=== PATIENT | male | born 1980 | race Caucasian/White ===

== ENCOUNTER 2024-03-12 09:21 | Outpatient (REF) | payer MEDICAID, SELFPAY ==
[2024-03-12 14:11] LABS: MANUAL DIFF FLAG NO
[2024-03-12 14:14] LABS: Basophils Absolute Auto 0.1 X10*3/uL (0.0-0.2); Basophils Percent Auto 0.9 % (0-2); Eosinophils Absolute Auto 0.2 X10*3/uL (0.0-0.4); Eosinophils Percent Auto 2.4 % (0-4); Hematocrit 46.1 % (42.0-52.0); Hemoglobin 14.9 g/dl (14.0-18.0); Imm Gran Abs Auto 0.03 X10*3/uL (0.00-0.03); Imm Gran Pct Auto 0.4 % (0.0-0.4); Lymphocytes Absolute Auto 2.8 X10*3/uL (1.2-4.9); Lymphocytes Percent Auto 33.9 % (20-40); Mean Corpuscular HGB Conc 32.3 g/dl (31.0-36.0); Mean Corpuscular Volume 86.5 fL (80.0-98.0); Mean Platelet Volume 11.2 fL (9.4-12.4); Monocytes Absolute Auto 0.5 X10*3/uL (0.1-1.2); Monocytes Percent Auto 6.6 % (2-11); Neutrophils Absolute Auto 4.6 x10*3/uL (2.0-8.3); Neutrophils Percent Auto 55.8 % (45-73); Platelet Count 258 X10*3/uL (160-400); Red Blood Count 5.33 X10*6/uL (4.60-5.80); Red Cell Distribution Width 12.8 % (11.0-16.0); White Blood Count 8.2 X10*3/uL (4.8-10.8)
[2024-03-12 14:33] LABS: Estimated Average Glucose 232 mg/dL; Hemoglobin A1c % 9.7 % (<6.0); Total Hemoglobin (HGBA1C) 3817.1857 umol/L
[2024-03-12 14:35] LABS: Alanine Aminotransferase 52 U/L (0-40); Albumin Level 4.3 g/dL (3.5-5.0); Alkaline Phosphatase 55 U/L (39-117); Anion Gap 14 (12-20); Aspartate Amino Transferase 38 U/L (5-37); Bilirubin Total 0.5 mg/dL (0.0-1.0); Blood Urea Nitrogen 16 mg/dL (9-16); Calcium 9.9 mg/dL (8.4-10.2); Carbon Dioxide 29 mmol/L (22-29); Chloride 101 mmol/L (96-108); Cholesterol 254 mg/dL (<200); Estimated Glomerular Filt Rate > 60; Glucose Random 229 mg/dL (60-115); HDL Cholesterol 37 mg/dL (>40); LDL Cholesterol Calculated 161 mg/dL (<100); Potassium 4.6 mmol/L (3.3-5.1); Sodium 139 mmol/L (135-145); Total Protein 7.7 g/dL (6.5-8.0); Triglycerides 282 mg/dL (<150)
[2024-03-12 14:53] LABS: TSH reflex Free T4 2.64 uIU/mL (0.32-4.0)
[2024-03-13 08:26] LABS: HIV AB/AG Nonreactive (Nonreactive); HIV Num 1 0.05 S/CO (0.00-0.99); ~HepC Num1 0.08 S/CO (0.00-0.79); ~Hepatitis C Antibody Nonreactive (Nonreactive)
== END 2024-03-12 09:22 | disposition home or self-care (01) ==
LOC: HO.CHCLDS 09:21
PROVIDERS: Visit Provider Internal Medicine
DX: E66.3 Overweight (principal)
CPT/HCPCS: 36415; 80053; 80061; 83036; 84443; 85025; 86803; 87389

== ENCOUNTER 2024-07-01 08:13 | Outpatient (REF) | payer MEDICAID, SELFPAY ==
--- OUTSIDE RECORDS SUMMARY | 2024-07-01 08:30 | XMS_ITS | Encounter Summary ---
Author Organization [employer] [facility] Address [address] [place] [address] [address] [place] [address] Care Team Providers Care Patient Care Name Role Phone Antonio Tellez MD Primary Care Prov ider Encounter Details Date Type Department Care Team (Late st Contact Info) Description 03/28/2022 Abstract [facility] [address] [place] [address] WilkinsEleni Hernandez, DDS [address] [place] [address] Social History Tobacco Use Types Packs/Day Years Used Date Smoking Tobacco: Never Assessed Sex and Gender Information Value Date Recorded Sex Assigned at Male 01/30/2022 10:35 AM EDT Legal Sex Male 10:35 AM EDT Gender Identity Male 01/30/2022 10:35 AM EDT Sexual Orientation Straight 01/30/2022 10 :35 AM EDT documented as of this encounter Plan of Treatment Not on file documented as of this encounter Visit Diagnoses Not on filedocumented in this encounter Care Teams Patient Care Relationship Specialty Start Date End Date Antonio Tellez MD [address] [place] [address] PCP - General Internal Medicine 03/13/24 documented as of this encounter
--- OUTSIDE RECORDS SUMMARY | 2024-07-01 08:30 | XMS_ITS | Clinical Summary ---
Author Organization [email or web address] Address [address] [place] [address] [address] [place] [address] Care Team Providers Care Tablet Technician Name Role Phone Antonio Tellez MD Primary Care Prov ider Allergies No known active allergies Medications ibuprofen 600 MG tabletIndication s:History of tooth extraction, unspecified edentulism class Take 1 tablet (600 mg) by mouth every 6 (six) hours if needed for mild pain for up to 20 doses. 20 tablet 01/09/2024 Active simvastatin (Zocor) 10 MG tablet Take 1 tablet (10 mg) by mouth at bedtime. 30 tablet 11 04/04/2024 6 Active Active Problems Problem Noted Date Diagnosed Date Physical exam 03/12/2024 Assessment & Plan (03/12/2024 9:03 AM EST): Unremarkable physical examination, new labs will be ordered to eval secondary conditions associated with obesity Refused vaccination Encounter for medical examination to establish c are 02/22/2024 Assessment & Plan (02/22/2024 7:58 AM EST): No pcp follow up in over 4 years No recent er visit No hx of hospitalization Pmhx: hypercholesterolemia Pshx: vasectomy 2018 All:- Meds:- Dental calculus 05/31/2022 Gingival bleeding 05/31/2022 Hypercholesterolemia 01/07/2020 Assessment & Plan (06/23/2024 2:10 PM EDT): On simvastatin, new labs ordered follow up in 1 week Assessment & Plan (03/12/2024 9:01 AM EST): Patient off medications, he has been managing it with diet and exercise, will order new labs for guidance of therapy Impaired fasting glucose 01/07/2020 Assessment & Plan (06/23/2024 2:10 PM EDT): Patient with elevated glucose, new labs will be sent, to be followed in 1 week Encounters Date Type Department Care Team Description 07/01/2024 Travel 06/27/2024 Orders Only [facility] [address] [place] [address] Antonio Tellez MD Hypercholesterolemia (Primary Dx) 06/23/2024 1:45 PM EDT Telemedicine [facility] [address] [place] [address] Antonio Tellez MD Impaired fasting glucose (Primary Dx); Hypercholesterolemia 06/23/2024 Travel 06/10/2024 Telephone [facility] [address] [place] [address] Antonio Tellez MD No Show 06/10/2024 Telephone [facility] [address] [place] [address] Antonio Tellez MD 06/10/2024 Travel 06/09/2024 Telephone [facility] [address] [place] [address] Antonio Tellez MD chart prep 04/07/2024 Telephone [facility] [address] [place] [address] Antonio Tellez MD Results 04/04/2024 Orders Only [facility] [address] [place] [address] Ruth Ann Javed MD from Last 3 Months Immunizations Name Administration Dates Next Due Influenza injectable quadrivalent preservative f ree 02/03/2020 Tdap 07/19/2018 Family History Medical History Relation Name Comments No Known Problems Father Diabetes Mother Cancer Neg Hx Relation Name Status Comments Father Mother Social History Tobacco Use Types Packs/Day Years Used Date Smoking Tobacco: Never Smokeless Tobacco: Never Tobacco Cessation:Counseling Given: Not Answered Alcohol Use Standard Drinks/Week Comments Never 0 (1 standard drink = 0.6 oz pur e alcohol) Depression Answer Date Recorded Patient Health Questionnaire-2 Score 0 03/12/2024 Sex and Gender Information Value Date Recorded Sex Assigned at Male 01/30/2022 10:35 AM EDT Legal Sex Male 10:35 AM EDT Gender Identity Male 01/30/2022 10:35 AM EDT Sexual Orientation Straight 01/30/2022 10 :35 AM EDT Last Filed Vital Signs Vital Sign Reading Time Taken Comments Blood Pressure 132/68 03/14/2024 10:31 AM EST Pulse 58 03/12/2024 8:38 AM EST Temperature 36.6 ??C (97.9 ??F) 03/12/2024 8:38 AM ES T Respiratory Rate 20 03/12/2024 8:38 AM EST Oxygen Saturation 100% 03/12/2024 8:38 AM EST Inhaled Oxygen Concentration - - Weight 115 kg (253 lb) 03/12/2024 8:38 AM EST Height - - Body Mass Index - - Plan of Treatment Health Maintenance Due Date Last Done Comments SDOH Screening 1982 Alcohol/Substance Use Screening 1994 Family Planning (PISQ) 1997 Hepatitis B Vaccines (1 of 3 - 19+ 3-dose series) 2001 COVID-19 Vaccine ( season) 2023 Influenza Vaccine (#1) 2023 02/03/2020 Dental Oral Exam 08/04/2024 02/04/2024, 05/01/2022 Dental Prophylaxis 08/04/2024 02/04/2024, 05/31/2022 Dental X-Ray: Bitewings 02/04/2025 02/04/20 24, 12/24/2023, 12/05/2022, Additional history exists Depression Screening 03/12/2025 03/12/2024, 03/12/20 Tobacco Screening 03/14/2025 03/14/2024 Dental X-Ray: Full Mouth 05/02/2025 05/01/2022 DTaP/Tdap/Td Vaccines (2 - Td or Tdap) 07/19/2028 07/19/2018 Lipid Panel 03/12/2029 03/12/2024, 04/09/2020 Zoster Vaccines (1 of 2) 2032 RSV Patients and Patients Aged 60 years or older (1 - 1-dose 75+ series) 2057 HIV Screening Completed 03/12/2024 Hepatitis C Screening Completed 03/12/2024 HIB Vaccines Aged Out No longer eligi ble based on patient's age to complete this topic HPV Vaccines Aged Out No longer eligi ble based on patient's age to complete this topic Hepatitis A Vaccines Aged Out No long er eligible based on patient's age to complete this topic IPV Vaccines Aged Out No longer eligi ble based on patient's age to complete this topic Meningococcal Vaccine Aged Out No shiela ge[place] eligible based on patient's age to complete this topic Pneumococcal Vaccine: Pediatrics (0 to 5 Years) and At-Risk Patients (6 to 49) Years) Aged Out No longer eligible based on patient's age to complete this topic RSV under 20 months Aged Out No longe r eligible based on patient's age to complete this topic Rotavirus Vaccines Aged Out No longer eligible based on patient's age to complete this topic Procedures Procedure Name Priority Date/Time Associated Diagnosis Comments HEPATITIS C AB W/REFL TO HCV RNA, QN, PCR Routine 03/12/2024 9:29 AM EST Overweight (BMI 25.0-29.9) HIV 1/2 ANTIGEN/ANTIBODY, FOURTH GENERATION W/RFL Routine 03/12/2024 9:29 AM EST Overweight (BMI 25.0-29.9) LIPID PANEL, STANDARD Routine 03/12/2024 9:29 AM EST Overweight (BMI 25.0-29.9) PROPHYLAXIS - ADULT Routine 02/04/2024 8 :00 AM EST Gingivitis Dental caries Secondary dental caries associated with failed or defective dental christian BITEWINGS - 4 RADIOGRAPHIC IMAGES Routine 02/04/2024 8:00 AM EST Gingivitis Dental caries Secondary dental caries associated with failed or defective dental christian PERIODIC ORAL EVALUATION - ESTABLISHED PATIENT Routine 02/04/2024 8:00 AM EST Gingivitis Dental caries Secondary dental caries associated with failed or defective dental christian INTRAORAL - COMPLETE SERIES OF RADIOGRAPHIC IMAGES Routine 05/01/2022 8:00 AM EST Encounter for dental examination from Last 3 Months or Most Recently Relevant to Health Maintenance Results * Hepatitis C Antibody with Reflex to HCV, RNA, Quantitative, Real-Time PCR (03/12/2024 9:29 AM EST) Hepatitis C Antibody Nonreactive Nonreactive [facility] Comment:Antibodies to HCV no t detected; does not exclude early acuteHCV infection. Blood Venous blood specimen / Unknown 03/12/2024 9:29 AM EST 03/12/2024 2:06 PM EST Antonio Pineda MD LAB BLOOD ORDERABL ES Final Result Performing Organization Address City/[facility]/[employer] Co de Phone Number [facility] [address] [place] [phone] * HIV-1/2 Antigen and Antibodies, Fourth Generation, with Reflexes (03/12/2024 9:29 AM EST) HIV AB/AG Nonreactive Nonreactive [facility] Comment:HIV-1 p24 Ag and/or HIV-1/HIV-2 Ab not detected.A test result that is nonreactive does not exclude thepossibility of exposure to or infection with HIV-1 and/orHIV-2. Nonreactive results in this assay for individualswith prior exposure to HIV-1 and/or HIV-2 may be due toantigen and antibody levels that are below the limit ofdetection of this assay.[employer] HIV Ag/Ab Combo assay result andsupplemental assay results should be interpreted inconjunction with the patient's clinical presentation,history and other laboratory results. If the results areinconsistent with clinical evidence, additional testing issuggested to confirm the result. Blood Venous blood specimen / Unknown 03/12/2024 9:29 AM EST 03/12/2024 2:06 PM EST Antonio Pineda MD LAB BLOOD ORDERABL ES Final Result Performing Organization Address City/[facility]/ZIP Co de Phone Number [facility] [address] [place] [address] [phone] * (ABNORMAL) Lipid Panel, Standard (03/12/2024 9:29 AM EST) Triglycerides 282(H) <150 mg/dL [facility] Comment:Desirable Triglyceri de: less than 150 mg/dLBorderline High Triglyceride 150-199 mg/dLHigh Triglyceride: 200-499 mg/dLVery High Triglyceride: greater than or equal to 5OO mg/dL Cholesterol 254(H) <200 mg/dL [facility] Comment:Desirable Cholestero l: less than 200 mg/dLBorderline High Cholesterol: 200-239 mg/dLHigh Cholesterol: greater than 239 mg/dL LDL Cholesterol Calculated 161(H) <100 mg/dL [facility] Comment:Desirable LDL: less than 100 mg/dLNear Optimal/Above Optimal LDL: 110- 129 mg/dLBorderline High LDL: 130-159 mg/dLHigh LDL: 160-189 mg/dLVery High LDL: greater than or equal to 190 mg/dL HDL Cholesterol 37(L) >40 mg/dL [facility] Comment:Desirable HDL: great er than 40 mg/dL Note: This HDL assay may give artificially low results in patients with liver disease. Blood Venous blood specimen / Unknown 03/12/2024 9:29 AM EST 03/12/2024 2:06 PM EST Antonio Pineda MD LAB BLOOD ORDERABL ES Final Result Performing Organization Address [facility]/ZIP Co de Phone Number [facility] [address] [place] [address] [phone] from Last 3 Months or Most Recently Relevant to Health Maintenance Insurance [place] [facility]-[facility] MEDICAID LIMITED ADULT DENTAL - HSN FULL (MEDICAID) Care Teams Tablet Technician Relationship Specialty Start Date End Date Antonio Tellez MD [address] [place] [address] PCP - General Internal Medicine 03/13/24
--- OUTSIDE RECORDS SUMMARY | 2024-07-01 08:31 | XMS_ITS | Encounter Summary ---
Author Organization [employer] Address [address] [facility] 7 [place] [address] Care Team Providers Care Vest Busheler Name Role Phone Antonio Tellez MD Primary Care Prov ider Encounter Details Date Type Department Care Team (Latest Contact Info) Description 07/01/2024 Travel Social History Tobacco Use Types Packs/Day Years Used Date Smoking Tobacco: Never Smokeless Tobacco: Never Alcohol Use Standard Drinks/Week Comments Never 0 [...] on filedocumented in this encounter Care Teams Vest Busheler Relationship Specialty Start Date End Date Antonio Tellez MD [address] [place] [address] PCP - General Internal Medicine 03/13/24 documented as of this encounter
--- OUTSIDE RECORDS SUMMARY | 2024-07-01 08:31 | XMS_ITS | Encounter Summary ---
Author Organization [employer] Address [address] [place] [address] 7 [place] [address] Care Team Providers Care Television News Reporter Name Role Phone Antonio Tellez MD Primary Care Prov ider Encounter Details Date Type Department Care Team (Latest Contact Info) Description 06/27/2024 Orders Only [facility] [address] [place] [address] Antonio Tellez MD [address] [place] [address] Hypercholesterolemia (Primary Dx) Social History Tobacco Use Types Packs/Day Years [...] as of this encounter Plan of Treatment Scheduled Orders Name Type Priority Associated Diagnoses Orde r Schedule Comprehensive Metabolic Panel Lab Routine Hypercholesterolemia Expected: 06/27/2024 (Approximate), Expires: 06/27/2025 Hemoglobin A1c Lab Routine Hypercholesterolemia Expected: 06/27/2024 (Approximate), Expires: 06/27/2025 Lipid Panel, Standard Lab Routine Hypercholesterolemia Expected: 06/27/2024 (Approximate), Expires: 06/27/2025 documented as of this encounter Visit Diagnoses Diagnosis Hypercholesterolemia- Primary Pure hypercholesterolemia documented in this encounter Care Teams Television News Reporter Relationship Specialty Start Date End Date Antonio Tellez MD [address] [place] [address] PCP - General Internal Medicine 03/13/24 documented as of this encounter
[2024-07-01 17:07] LABS: Estimated Average Glucose 246 mg/dL; Hemoglobin A1c % 10.2 % (<6.0)
[2024-07-01 17:16] LABS: Alanine Aminotransferase 36 U/L (0-40); Albumin Level 4.2 g/dL (3.5-5.0); Alkaline Phosphatase 50 U/L (39-117); Anion Gap 12 (12-20); Aspartate Amino Transferase 27 U/L (5-37); Bilirubin Total 0.4 mg/dL (0.0-1.0); Blood Urea Nitrogen 14 mg/dL (9-16); Calcium 9.2 mg/dL (8.4-10.2); Carbon Dioxide 26 mmol/L (22-29); Chloride 104 mmol/L (96-108); Cholesterol 195 mg/dL (<200); Estimated Glomerular Filt Rate > 60; Glucose Fasting 246 mg/dL (60-99); HDL Cholesterol 31 mg/dL (>40); Potassium 4.3 mmol/L (3.3-5.1); Sodium 138 mmol/L (135-145); Triglycerides 401 mg/dL (<150)
== END 2024-07-01 08:14 | disposition home or self-care (01) ==
LOC: HO.CHCLDS 08:13
PROVIDERS: Visit Provider Internal Medicine
DX: E78.00 Pure hypercholesterolemia, unspecified (principal)
CPT/HCPCS: 36415; 80053; 80061; 83036

== ENCOUNTER 2024-12-09 08:22 | Outpatient (REF) | payer MEDICAID, SELFPAY ==
--- OUTSIDE RECORDS SUMMARY | 2024-12-09 09:24 | XMS_ITS | Encounter Summary ---
Author Organization [employer] Address [address] [facility] [address] [place] [address] Care Team Providers Care Roll Examiner Name Role Phone Emmanuelle Brandon MD Primary Care Provider [phone] Reason for Visit * Reason Comments Med Change Request Encounter Details Date Type Department Care Team ([facility] Contact Info) Description 11/17/2024 Refill [facility] [address] [place] [address] Emmanuelle Brandon MD [address] [place] [address] Type 2 diabetes mellitus without complication, without long-term current use of insulin ([facility]) Social History Tobacco Use Types Packs/Day Years Used Date Smoking Tobacco: Never Smokeless Tobacco: Never Alcohol Use Standard Drinks/Week Comments Never 0 (1 standard drink = 0.6 oz pur e alcohol) Depression Answer Date Recorded Patient Health Questionnaire-9 Score 0 11/17/2024 Patient Health Questionnaire-9 Score 0 11/17/2024 Last PHQ-9: Questionnaire Data Not on file 0 11/17/2024 Depression Answer Date Recorded Patient Health Questionnaire-2 Score 0 11/17/2024 Sex and Gender Information Value Date Recorded Sex Assigned at Male 01/30/2022 10:35 AM EDT Legal Sex Male 10:35 AM EDT Gender Identity Male 01/30/2022 10:35 AM EDT Sexual Orientation Straight 01/30/2022 10 :35 AM EDT documented as of this encounter Functional Status * Over the past 2 weeks, how often have you been bothered by any of the following problems? Question Answer Date of Assessment Author Patient Health Questionnaire-2 Score 0 10/31 2:06 PM EDT Adam Herrera MA * Little interest or pleasure in doing things Answer Date of Assessment Author Not at all 11/17/2024 2:06 PM EDT Adam Herrera MA * Feeling down, depressed, or hopeless Answer Date of Assessment Author Not at all 11/17/2024 2:06 PM EDT Adam Herrera MA * Trouble falling or staying asleep, or sleeping too much Answer Date of Assessment Author Not at all 11/17/2024 2:06 PM EDT Adam Herrera MA * Feeling tired or having little energy Answer Date of Assessment Author Not at all 11/17/2024 2:06 PM EDT Adam Herrera MA * Poor appetite or overeating Answer Date of Assessment Author Not at all 11/17/2024 2:06 PM EDT Adam Herrera MA * Feeling bad about yourself - or that you are a failure or have let yourself or your family down Answer Date of Assessment Author Not at all 11/17/2024 2:06 PM EDT Adam Herrera MA * Trouble concentrating on things, such as reading the newspaper or watching television Answer Date of Assessment Author Not at all 11/17/2024 2:06 PM EDT Adam Herrera MA * Moving or speaking so slowly that other people could have noticed? Or the opposite - being so fidgety or restless that you have been moving around a lot more than usual. Answer Date of Assessment Author Not at all 11/17/2024 2:06 PM EDT Adam Herrera MA * Thoughts that you would be better off or hurting yourself in some way Answer Date of Assessment Author Not at all 11/17/2024 2:06 PM EDT Adam Herrera MA * Patient Health Questionnaire-9 Score Answer Date of Assessment Author 0 11/17/2024 2:06 PM EDT Adam Herrera MA documented as of this encounter Plan of Treatment Upcoming Encounters Date Type Department Care Team (Late st Contact Info) Description 01/05/2025 10:45 AM EDT Office Visit [facility] [address] [place] [address] Emmanuelle Brandon MD [address] [place] [address] documented as of this encounter Visit Diagnoses Diagnosis Type 2 diabetes mellitus without complication, without long-term current use of insulin ([facility]) documented in this encounter Additional Health Concerns Assessment Noted Time PHQ-9 Depression Total Score: 0 11/18/19 25 2:06 PM EDT documented as of this encounter Care Teams Roll Examiner Relationship Specialty Start Date End Date Emmanuelle Brandon MD [address] [place] [address] PCP - General Internal Medicine 11/17/24 documented as of this encounter
--- OUTSIDE RECORDS SUMMARY | 2024-12-09 09:24 | XMS_ITS | Encounter Summary ---
Author Organization [employer] [facility] Address [address] [place] [address] Care Team Providers Care Switch Foreman Name Role Phone nAtonio Tellez MD Primary Care Prov ider Emmanuelle Brandon MD Primary Care Provider Encounter Details Date Type Department Care Team (Late st Contact Info) Description 03/28/2022 Abstract [facility] AD[facility] [address] [place] [address] Eleni Nichols, DDS [address] [place] [address] Social History Tobacco Use Types Packs/Day Years [...] Description 01/05/2025 10:45 AM EDT Office Visit [facility] [address] [place], [place] [phone] Emmanuelle Brandon MD [address] [place] [address] documented as of this encounter Visit Diagnoses Not on filedocumented in this encounter Care Teams Switch Foreman Relationship Specialty Start Date End Date Antonio Tellez MD [address] [place] [address] PCP - General Internal Medicine 03/13/24 11/16/24 Emmanuelle Brandon MD [address] [place] [address] PCP - General Internal Medicine 11/17/24 documented as of this encounter
--- OUTSIDE RECORDS SUMMARY | 2024-12-09 09:24 | XMS_ITS | Clinical Summary ---
Author Organization [employer] Address [address] [facility] [address] [place] [address] Care Team Providers Care Gas Operations Superintendent Name Role Phone Emmanuelle Brandon MD Primary Care Provider [phone] Allergies No known active allergies Medications ibuprofen 600 MG tabletIndications :History of tooth extraction, unspecified edentulism class Take 1 tablet (600 mg) by mouth every 6 (six) hours if needed for mild pain for up to 20 doses. 20 tablet 4 Active atorvastatin (Lipitor) 40 MG tablet Take 1 tablet (40 mg) by mouth Once per day. 30 tablet 11 5 07/09/19 26 Active metFORMIN (Glucophage) 1000 MG tablet Take 1 tablet (1,000 mg) by mouth with breakfast and with evening meal. 60 tablet 11 5 07/09/19 26 Active Blood Glucose Monitoring Suppl (FreeStyle Lite) w/Device kit 1 Device Once per day. 1 kit 5 Active FreeStyle lancets 1 each by Other route Once per day. 100 each 12 5 07/09/19 26 Active FREESTYLE LITE test strip Monitor blood glucose daily 100 each 5 07/09/19 26 Active Tirzepatide (Mounjaro) 2.5 MG/0.5ML solution auto-injectorIndi cations:Type 2 diabetes mellitus without complication, without long-term current use of insulin ([facility]) Inject 2.5 mg under the skin 1 (one) time per week. 2 mL 2 5 Active lisinopril 5 MG tabletIndications :Primary hypertension Take 1 tablet (5 mg) by mouth Once per day. 30 tablet 11 5 11/18/19 26 Active Active Problems Problem Noted Date Diagnosed Date Type 2 diabetes mellitus wit hout complication, without long-term current use of insulin 07/08/2024 Assessment & Plan (07/08/2024 11:57 AM EDT): A1c 10%, will start on metformin, encouraged to keep low carb diet, eliminate sugars, exercise as tolerated, glucose monitoring equipment will be sent, follow up in 1 month Physical exam 03/12/2024 Assessment & Plan (03/12/2024 [...] bleeding 05/31/2022 Hypercholesterolemia 01/07/2020 Assessment & Plan (07/08/2024 11:57 AM EDT): Will switch to atorvastatin, risk vs benefits discussed, follow up in 2-3 months Assessment & Plan (06/23/2024 2:10 PM EDT): [...] Encounters Date Type Department Care Team Description 11/24/2024 Telephone [facility] [address] [place] [phone] Emmanuelle Brandon MD Prior Authorization 11/18/2024 Telephone [facility] [address] [place] [phone] Emmanuelle Brandon MD 11/17/2024 2:00 PM EDT Office Visit [facility] [address] [place] [address] Emmanuelle Brandon MD Impaired fasting glucose (Primary Dx); Type 2 diabetes mellitus without complication, without long-term current use of insulin (CMS/HCC); Other fatigue; Primary hypertension; Dietary counseling; Exercise counseling; Class 1 obesity due to excess calories with serious comorbidity and body mass index (BMI) of 33.0 to 33.9 in adult 11/17/2024 Refill [facility] [address] [place] [address] Emmanuelle Brandon MD Type 2 diabetes mellitus without complication, without long-term current use of insulin (CMS/HCC) 11/17/2024 Travel 11/14/2024 Telephone [facility] [address] [place] [address] Antonio Tellez MD chart prep 11/10/2024 Patient Outreach [facility] [address] [place] [phone] Antonio Tellez MD Pre-visit Planning (Pre visit planning LVM ) from Last 3 Months Immunizations Immunization Administration Dates Next Due Influenza injectable quadrivalent preservative f ree 02/03/2020 Tdap 07/19/2018 Family History Medical History Relation Name Comments Obesity Father Diabetes Mother Cancer Neg Hx Relation [...] Sign Reading Time Taken Comments Blood Pressure 160/90 11/17/2024 1:58 PM EDT Pulse 72 11/17/2024 1:58 PM EDT Temperature 37.1 C (98.7 F) 11/17/2024 1:58 PM EDT Respiratory Rate 20 11/17/2024 1:58 PM EDT Oxygen Saturation 97% 11/17/2024 1:58 PM EDT Inhaled Oxygen Concentration - - Weight 112 kg (246 lb 9.6 oz) 11/17/2024 1:58 PM EDT Height 182.9 cm (6') 11/17/2024 1:58 PM EDT Body Mass Index 33.44 11/17/2024 1:58 PM EDT Plan of Treatment Upcoming Encounters Date Type Department Care Team (Late st Contact Info) Description 01/05/2025 10:45 AM EDT Office Visit [facility] [address] [place] [address] Emmanuelle Brandon MD [address] [place] [address] Health Maintenance Due Date Last Done Comments SDOH Screening 1982 Diabetes: Foot Exam 1992 Eye Exam 1992 Family Planning (PISQ) 1997 HPV Vaccines (1 - Male 3-dose series) 1997 Diabetes: Urine Protein Screening 2001 Hepatitis B Vaccines (1 of 3 - 19+ 3-dose series) 2001 Pneumococcal Vaccine: Pediatrics (0 to 5 Years) and At-Risk Patients (6 to 49) Years (1 of 2 - PCV) 2001 Dental Oral Exam 08/04/2024 02/04/2024, 05/01/2022 Dental Prophylaxis 08/04/2024 02/04/2024, 05/31/2022 COVID-19 Vaccine ( season) 2024 Influenza Vaccine (#1) 2024 02/03/2020 Dental X-Ray: Bitewings 02/04/2025 02/04/20 24, 12/24/2023, 12/05/2022, Additional history exists Diabetes: Hemoglobin A1C 02/17/2025 025, 07/01/2024, 03/12/2024 Dental X-Ray: Full Mouth 05/02/2025 05/01/2022 Lipid Panel 07/01/2025 07/01/2024, 03/02, 04/09/2020 Alcohol/Substance Use Screening 11/17/2025 11/17/2024 Depression Screening 11/17/2025 11/17/2024, 11/18/19 25 Disability Screening 11/17/2025 11/17/2024 Tobacco Screening 11/17/2025 11/17/2024 DTaP/Tdap/Td Vaccines (2 - Td or Tdap) 07/19/2028 07/19/2018 Zoster Vaccines (1 of 2) 2032 RSV [...] patient's age to complete this topic Meningococcal B Vaccine Aged Out No l onger eligible based on patient's age to complete this topic Meningococcal Vaccine Aged Out No shiela gerogia eligible based on patient's age to complete this topic RSV under 20 months Aged Out No longe r eligible based on patient's age to complete this topic Rotavirus Vaccines Aged Out No longer eligible based on patient's age to complete this topic Procedures Procedure Name Priority Date/Time Associated Diagnosis Comments POCT GLYCATED HEMOGLOBIN, TOTAL Routine 11/17/2024 2:48 PM EDT Type 2 diabetes mellitus without complication, without long-term current use of insulin ([facility]) POCT GLUCOSE Routine 11/17/2024 2:48 PM EDT Type 2 diabetes mellitus without complication, without long-term current use of insulin ([facility]/HCC) LIPID PANEL, STANDARD Routine 07/01/2024 8:20 AM EDT Hypercholesterolemi a HEPATITIS C AB W/REFL TO HCV RNA, QN, PCR Routine 03/12/2024 9:29 AM EST Overweight (BMI 25.0-29.9) HIV 1/2 ANTIGEN/ANTIBODY, FOURTH GENERATION W/RFL Routine 03/12/2024 9:29 AM EST Overweight (BMI 25.0-29.9) PROPHYLAXIS - ADULT Routine 02/04/2024 8 :00 AM EST Gingivitis Dental caries Secondary dental caries associated with failed or defective dental denominational BITEWINGS - 4 RADIOGRAPHIC IMAGES Routine 02/04/2024 8:00 AM EST Gingivitis Dental caries Secondary dental caries associated with failed or defective dental denominational PERIODIC ORAL EVALUATION - ESTABLISHED PATIENT Routine 02/04/2024 8:00 AM EST Gingivitis Dental caries Secondary dental caries associated with failed or defective dental denominational INTRAORAL - COMPLETE SERIES OF RADIOGRAPHIC IMAGES Routine 05/01/2022 8:00 AM EST Encounter for dental examination from Last 3 Months or Most Recently Relevant to Health Maintenance Results * (ABNORMAL) POCT HGB A1C (11/17/2024 2:48 PM EDT) Hemoglobin A1C 9.9(A) 4.0 - 5.7 % QC Media Lot # [id number] Lot# Expiration Date [id number] Blood 11/17/2024 2:48 PM EDT Emmanuelle Brandon MD POINT OF CARE TEST ENTER/ED IT ORDERABLES Final Result * (ABNORMAL) POCT Glucose (11/17/2024 2:48 PM EDT) Glucose Blood, POC 295(A) 60 - 200 mg/dL QC Media Lot # [id number] Lot# Expiration Date ,025 Blood Capillary blood specimen / Unknown 11/17/2024 2:48 PM EDT us Emmanuelle Brandon MD POINT OF CARE TEST ENTER/ED IT ORDERABLES Final Result * (ABNORMAL) Lipid Panel, Standard (07/01/2024 8:20 AM EDT) Triglycerides 401(H) <150 mg/dL [facility] Comment:Desirable Triglyceri de: less than 150 mg/dLBorderline High Triglyceride 150-199 mg/dLHigh Triglyceride: 200-499 mg/dLVery High Triglyceride: greater than or equal to 5OO mg/dL Cholesterol 195 <200 mg/dL [facility] Comment:Desirable Cholestero l: less than 200 mg/dLBorderline High Cholesterol: 200-239 mg/dLHigh Cholesterol: greater than 239 mg/dL LDL Cholesterol Calculated TNP <100 mg/dL [facility] Comment:Unable to calculate the LDL. The formula of Friedwald,Church, and Geena is only valid if the triglycerides areless than 400 mg/dl. HDL Cholesterol 31(L) >40 mg/dL [facility] Comment:Desirable HDL: great er than 40 mg/dL Note: This HDL assay may give artificially low results in patients with liver disease. Blood Venous blood specimen / Unknown 07/01/2024 8:20 AM EDT 07/01/2024 2:43 PM EDT us Antonio Pnieda MD LAB BLOOD ORDERABL ES Final Result [facility] [address] [place] [address] [phone] * Hepatitis C Antibody with Reflex to HCV, RNA, Quantitative, Real-Time PCR (03/12/2024 9:29 AM EST) Hepatitis C Antibody Nonreactive Nonreactive [facility] Comment:Antibodies to HCV no t detected; does not exclude early acuteHCV infection. Blood Venous blood specimen / Unknown 03/12/2024 9:29 AM EST 03/12/2024 2:06 PM EST Antonio Pineda MD LAB BLOOD ORDERABL ES Final Result Performing Organization Address [facility] Co de Phone Number [facility] [address] [place] [phone] * HIV-1/2 Antigen and Antibodies, Fourth Generation, with Reflexes (03/12/2024 9:29 AM EST) [facility] HIV AB/AG Nonreactive Nonreactive [facility] Comment:HIV-1 p24 Ag and/or HIV-1/HIV-2 Ab not detected.A test result that is nonreactive does not exclude thepossibility of exposure to or infection with HIV-1 and/orHIV-2. Nonreactive results in this assay for individualswith prior exposure to HIV-1 and/or HIV-2 may be due toantigen and antibody levels that are below the limit ofdetection of this assay.The [employer] HIV Ag/Ab Combo assay result andsupplemental assay results should be interpreted inconjunction with the patient's clinical presentation,history and other laboratory results. If the results areinconsistent with clinical evidence, additional testing issuggested to confirm the result. Blood Venous blood specimen / Unknown 03/12/2024 9:29 AM EST 03/12/2024 2:06 PM EST us Antonio Pineda MD LAB BLOOD ORDERABL ES Final Result Performing Organization Address [facility] Co de Phone Number [facility] [address] [place] [phone] from Last 3 Months or Most Recently Relevant to Health Maintenance Insurance [place]-[facility] MEDICAID LIMITED ADULT DENTAL - HSN FULL (MEDICAID) Care Teams Gas Operations Superintendent Relationship Specialty Start Date End Date Emmanuelle Brandon MD [address] [place] [address] PCP - General Internal Medicine 11/17/24
--- OUTSIDE RECORDS SUMMARY | 2024-12-09 09:24 | XMS_ITS | Encounter Summary ---
Author Organization [employer] Address [address] [place] [address] [address] [address] Care Team Providers Care Electronics Specialist Name Role Phone Antonio Tellez MD Primary Care Prov ider Emmanuelle Brandon MD Primary Care Provider [phone] Encounter Details Date Type Department Care Team (Latest Contact Info) Description 06/27/2024 Orders Only [facility] [address] [place] [address] Antonio Tellez MD [address] [place] [address] Hypercholesterolemia (Primary Dx) Social History Tobacco Use [...] Upcoming Encounters Date Type Department Care Team ( st Contact Info) Description 01/05/2025 10:45 AM EDT Office Visit [facility] [address] [place], [place] [phone] Emmanuelle Brandon MD [address] [place], [place] [phone] Scheduled Orders Name Type Priority Associated Diagnoses Orde r Schedule Comprehensive Metabolic Panel Lab Routine Hypercholesterolemia Expected: 06/27/2024 (Approximate), Expires: 06/27/2025 documented as of this encounter Procedures Procedure Name Priority Date/Time Associated Diagnosis Comments HEMOGLOBIN A1C Routine 07/01/2024 8:20 AM EDT Hypercholesterolemi a LIPID PANEL, STANDARD Routine 07/01/2024 8:20 AM EDT Hypercholesterolemi a documented in this encounter Results * (ABNORMAL) Lipid Panel, Standard (07/01/2024 8:20 AM EDT) Triglycerides 401(H) <150 mg/dL [facility] Comment:Desirable Triglyceri de: less than 150 mg/dLBorderline High Triglyceride 150-199 mg/dLHigh Triglyceride: 200-499 mg/dLVery High Triglyceride: greater than or equal to 5OO mg/dL Cholesterol 195 <200 mg/dL [facility] Comment:Desirable Cholestero l: less than 200 mg/dLBorderline High Cholesterol: 200-239 mg/dLHigh Cholesterol: greater than 239 mg/dL LDL Cholesterol Calculated TNP <100 mg/dL [facility] Comment:Unable to calculate the LDL. The formula of Friedwald,Church, and Geena is only valid if the triglycerides areless than 400 mg/dl. HDL Cholesterol 31(L) >40 mg/dL [facility] Comment:Desirable HDL: great er than 40 mg/dL Note: This HDL assay may give artificially low results in patients with liver disease. Blood Venous blood specimen / Unknown 07/01/2024 8:20 AM EDT 07/01/2024 2:43 PM EDT us Antonio Pineda MD LAB BLOOD ORDERABL ES Final Result [facility] [address] [place] [phone] * (ABNORMAL) Hemoglobin A1c (07/01/2024 8:20 AM EDT) Hemoglobin A1c 10.2(H) <6.0 % [facility] Comment:Hemoglobin A1C Refer ence Range Adults: 4.8 - 6.0 % Non diabetic: < 6.0 % Goal: < 7.0 %Additional Action Suggested: > 8.0 %Note: Hemoglobin A1c results are invalid for patients with abnormal amounts of HbF. Blood transfusions may impact the HbA1c concentration in the patient sample. Estimated Average Glucose 246 mg/dL [facility] Comment:eAG = Estimated ave rage glucose which is %A1C expressed asaverage glucose, using the formula of the [id number] Glucose study (ADAG), Diabetes Care, Vol.31,#8,Oct. 2007 Blood Venous blood specimen / Unknown 07/01/2024 8:20 AM EDT 07/01/2024 2:43 PM EDT Antonio Pineda MD LAB BLOOD ORDERABL ES Final Result [facility] [address] [place] [phone] documented in this encounter Visit Diagnoses Diagnosis Hypercholesterolemia- Primary Pure hypercholesterolemia documented in this encounter Care Teams Electronics Specialist Relationship Specialty Start Date End Date Antonio Tellez MD [address] [place] [address] PCP - General Internal Medicine 03/13/24 11/16/24 Emmanuelle Brandon MD [address] [place] [address] PCP - General Internal Medicine 11/17/24 documented as of this encounter
[2024-12-09 14:13] LABS: MANUAL DIFF FLAG NO
[2024-12-09 14:25] LABS: Hematocrit 44.0 % (42.0-52.0); Hemoglobin 14.6 g/dl (14.0-18.0); Imm Gran Abs Auto 0.02 X10*3/uL (0.00-0.03); Imm Gran Pct Auto 0.3 % (0.0-0.4); Lymphocytes Absolute Auto 2.7 X10*3/uL (1.2-4.9); Mean Corpuscular HGB Conc 33.2 g/dl (31.0-36.0); Mean Corpuscular Hemoglobin 28.2 pg (27.0-33.0); Mean Corpuscular Volume 84.9 fL (80.0-98.0); NRBC Abs Auto 0.000 X10*3/uL (0.0-0.012); NRBC Pct Auto 0.0 /100WBC (0.0-0.2); Platelet Count 236 X10*3/uL (160-400); Red Blood Count 5.18 X10*6/uL (4.60-5.80); White Blood Count 7.7 X10*3/uL (4.8-10.8)
[2024-12-09 14:54] LABS: Magnesium 1.9 mg/dL (1.6-2.6)
[2024-12-09 15:25] LABS: Folate 10.6 ng/mL (> or = 4.0); Vitamin B12 543 pg/mL (200-900)
[2024-12-13 14:47] LABS: Testosterone, Free 78.3 pg/mL (35.0-155.0)
== END 2024-12-09 08:23 | disposition home or self-care (01) ==
LOC: HO.CHCLDS 08:22
PROVIDERS: PCP Internal Medicine; Visit Provider Internal Medicine
DX: E11.9 Type 2 diabetes mellitus without complications (principal); R53.83 Other fatigue
CPT/HCPCS: 36415; 82306; 82607; 82746; 83735; 84402; 84403; 84443; 85025